=== PATIENT | male | born 1960 | race Caucasian/White ===

== ENCOUNTER → 2020-07-17 07:59 | Outpatient (CLI) | payer SELFPAY ==
--- NOTE | 2020-07-17 08:18 | EKG12_ITS ---
Test Reason : PREOP Blood Pressure : / mmHG Vent. Rate : 082 BPM Atrial Rate : 082 BPM P-R Int : 124 ms QRS Dur : 092 ms QT Int : 390 ms P-R-T Axes : 066 027 056 degrees QTc Int : 455 ms Normal sinus rhythm with sinus arrhythmia Normal ECG Confirmed by RADHA BERGER, LUIS ([id number]), editor in chief [address] ([id number]) on 07/20/2020 1:45:25 PM Referred By: Jazlyn Ortega Confirmed By:LUIS GARCIA MD
[2020-07-17 09:37] LABS: Hematocrit 42.6 % (40-54); Hemoglobin 15.2 g/dL (13.0-16.5); Mean Corp Hgb Conc 35.7 g/dL (32-36); Mean Corpuscular Hgb 33.6 pg (27.0-32.0); Mean Corpuscular Volume 94.2 fL (80-94); Mean Platelet Vol. 10.3 fl (6.2-12.0); Platelet Count 167 K/mm3 (150-450); RBC Distribution Width CV 11.9 % (11.6-14.6); RBC Distribution Width SD 41.2 fl (35.1-43.9); Red Blood Count 4.52 M/mm3 (4.6-6.2); White Blood Count 3.6 K/mm3 (4.4-11.0)
[2020-07-17 10:10] LABS: Anion Gap 7 (5-15); BUN 15 mg/dL (7-18); BUN/Creat Ratio 13.8 RATIO (10-20); Calcium,Total 8.8 mg/dL (8.5-10.1); Chloride 105 mmol/L (98-107); Creatinine, Serum 1.09 mg/dL (0.70-1.30); EST Glomerular Filtration Rate 74 mL/min (>60); Est Glom Filt Rate - Afr Amer 89 mL/min (>60); Glucose 86 mg/dL (74-106); Potassium 3.9 mmol/L (3.5-5.1); Sodium Level 138 mmol/L (136-145)
== END ==
PROVIDERS: Referring Provider Nurse Practitioner Adult Health; Visit Provider Nurse Practitioner Adult Health
DX: Z01.812 Encounter for preprocedural laboratory examination (principal); Z03.818 Encounter for observation for suspected exposure to other biological agents ruled out
CPT/HCPCS: 36415; 80048; 85027; 87635; 93005; C9803; U0005; U0003

== ENCOUNTER 2022-04-30 10:00 | Emergency (ER) | payer OTHER, SELFPAY ==
[2022-04-30 10:01] VITALS: BP 143/84; PULSE 78; RESP 16; TEMP 36.6; O2SAT 98; BMI 28.8
--- NOTE | 2022-04-30 10:06 | EKG12_ITS ---
Test Reason : CHEST PAIN Blood Pressure : / mmHG Vent. Rate : 088 BPM Atrial Rate : 088 BPM P-R Int : 126 ms QRS Dur : 092 ms QT Int : 384 ms P-R-T Axes : 061 -06 035 degrees QTc Int : 464 ms Normal sinus rhythm Normal ECG Confirmed by RADHA BERGER, LUIS ([id number]), medical transcription editor [address] ([id number]) on 05/02/2022 2:08:32 PM Referred By: BB Confirmed By:LUIS GARCIA MD
--- NOTE | 2022-04-30 10:06 | RAD_ITS ---
INDICATION: chest pain EXAMINATION/TECHNIQUE: X-RAY - XR Chest 1 View COMPARISON: None. FINDINGS: LINES/DEVICES: None. LUNGS: No consolidation, edema or effusion. No pneumothorax. MEDIASTINUM AND CARDIOVASCULAR STRUCTURES: Cardiac silhouette not enlarged. Central airways and mediastinal contour are unremarkable. BONES AND SOFT TISSUES: Unremarkable. RAD/Chest 1 View (Portable) IMPRESSION: No radiographic evidence of acute cardiopulmonary disease. Electronically Signed: Tomas Valdes MD, DEBBIE at 10:30 EDT ,
[2022-04-30 10:13] LABS: Absolute Lymphocyte Count 0.75 X10^3/uL (0.83-4.51); Absolute Neutrophil Count 1.4 X10^3/uL (2.0-7.7); Basophil# 0.02 X10^3/uL; Basophil% 0.7 % (0-1); Eosinophil# 0.06 X10^3/uL; Eosinophils% 2.1 % (0-5); Hematocrit 41.6 % (40-54); Hemoglobin 15.3 g/dL (13.0-16.5); Lymphocyte # 0.75 X10^3/ul (0.83-4.51); Lymphocyte % 26.6 % (19-41); Mean Corp Hgb Conc 36.8 g/dL (32-36); Mean Corpuscular Hgb 34.3 pg (27.0-32.0); Mean Corpuscular Volume 93.3 fL (80-94); Mean Platelet Vol. 9.6 fl (6.2-12.0); Monocyte# 0.55 X10^3/uL; Monocyte% 19.5 % (0-10); NRBC Flagged by Analyzer 0 % (0-5); Neutrophil # 1.43 X10^3/uL (2.7-7.7); Neutrophil % 50.7 % (47-70); POSITIVE MORPHOLOGY YES; Platelet Count 152 K/mm3 (150-450); RBC Distribution Width CV 12.1 % (11.6-14.6); RBC Distribution Width SD 42.1 fl (35.1-43.9); Red Blood Count 4.46 M/mm3 (4.6-6.2); White Blood Count 2.8 K/mm3 (4.4-11.0)
[2022-04-30 10:14] LABS: Differential Indicated SCAN CRITERIA MET
--- NOTE | 2022-04-30 10:18 | ED.VIS.CHEST ---
HPI History of Present Illness Chief Complaint: Chest Pain Detail of Chief Complaint: Lower sternal and epigastric pain. Informant: patient and spouse/S.O. Onset/Context/Timing Onset: Days Activity at onset: gradual Timing: Continuous Quality: Positive for Dull Current Severity: Mild Maximum Severity: Mild Worsened By: Movement of Torso; Not Worsened By Exertion, Movement of Arm, Eating, Palpation, Breathing or Coughing Relieved By: Nothing Associated Symptoms: Negative for Nausea, Vomiting, Diaphoresis, Dyspnea, Cough, Fever, Lightheadedness or Palpitations Narrative Narrative: 61-year-old male no seen past medical history. No history of DVT or PE. No cardiac history. Non-smoker. Complaining of a pressure to dull sensation in his lower chest epigastric region. Has been going on for a week. Worse since Monday. Worse when he bends over. Not associated with exertion. No dyspnea. No hemoptysis. Pain is not pleuritic. No recent travel, surgery or immobilization. No leg pain or swelling. He denies any history of reflux or cardiac disease. He has no trouble with exertion or walking. The discomfort does not radiate to his back, neck, jaw or arm. Prior Similar Symptoms: Yes Recent Illness/Hospitalization: No CVD Risk Factors: Negative for Hypertension, Diabetes, Hypercholesterolemia, Family History 1' </=55 or Smoking PE Risk Factors: Negative for Recent Immobilization, Prior DVT or PE, Cancer or OCP + Smoking + >/=35 TAD Risk Factors: Negative for Marfan's Syndrome PFSH PFS Medical History Hydrocele Home Medications NK 04/30/22 [History Last Taken Unknown] Allergy/AdvReac Type Severity Reaction Status Date / Time No Known Allergies Allergy Verified 04/30/22 10:09 Social History Smoking Status: Never smoker ROS ROS ED ROS Narrative Denies recent illness. Review of Systems ROS Unobtainable: Denies due to encephalopathy Constitutional Constitutional ED: Denies chills or fever(s) Eyes Eyes: Reports none ENT ENT ED: Denies ear pain Cardiovascular Cardiovascular: Reports as per HPI and chest pain Respiratory/Chest Respiratory/Chest: Denies cough or dyspnea Gastrointestinal Gastrointestinal: Reports abdominal pain and diarrhea; Denies constipation, melena, nausea or vomiting Genitourinary Genitourinary ED: Denies dysuria or hematuria Musculoskeletal Musculoskeletal: Denies arthralgias Integumentary Denies abscess Neurologic Neurologic: Denies headache(s) Psychiatric Psychiatric: Denies anxiety or depression Endocrine Endocrinology: Denies cold intolerance Hematologic/Lymphatic Hematologic/Lymphatic: Denies easy bleeding Allergic/Immunologic Allergic/Immunologic ED: Denies mouth swelling EXAM Physical Exam Narrative Exam Narrative: 61-year-old male vital signs are stable afebrile. Pulse ox is 90% on room air no signs of hypoxia. He is in no distress. at bedside. H EENT exam unremarkable. Neck nontender no lymphadenopathy. Trachea midline. Lungs clear to auscultation bilaterally. Heart regular rate and rhythm rate about 80. No murmur. Chest wall nontender. Abdomen soft nontender. Normal bowel sounds no peritoneal signs. Right upper and right lower quadrants are unremarkable. No distention. No pulsatile mass. Moving all 4 extremities. Calves are nontender without edema or cords. Normal motor strength. Equal symmetrical radial pulses. Back nontender. Neurologically is awake and alert with no focal motor deficits. Const Vital Signs: 04/30/22 10:01 04/30/22 10:04 04/30/22 10:06 Temperature 97.9 F Temperature Source Oral Pulse Rate 78 Respiratory Rate 16 Respiratory Effort Normal Blood Pressure 143/84 H Blood Pressure Mean 103 Pulse Ox 98 Oxygen Delivery Method Room Air Room Air Positive well nourished and well developed; Negative for obese, cachectic, contractures or unkempt General Appearance ED: well developed and NAD; Negative for unkempt, cachectic, contractures or pallor Nutritional Appearance: Negative for cachectic or obese HEENT Reports moist mucous membranes normocephalic and atraumatic; Negative for trauma or tenderness Eyes PERRL and EOMs intact bilaterally General Eye ED: Negative for pale conjunctiva or scleral icterus Neck no lymphadenopathy, supple and no JVD General: Negative for tenderness Chest Wall inspection of chest normal and palpation of chest normal Chest: Negative for tenderness Resp normal respiratory effort and clear to auscultation bilaterally Effort and Inspection: Negative for respiratory distress Auscultation: Negative for rales, rhonchi or wheezes Cardio regular rate, regular rhythm, S1 normal heart sound, S2 normal heart sound and no murmurs Rate: Negative for bradycardia or tachycardic Rhythm: Negative for abnormal rhythm Peripheral Pulses: pulses 2+ throughout GI normal to inspection, nondistended, normoactive bowel sounds, soft to palpation, non-tender, non-distended and no masses; Negative for hepatosplenomegaly Auscultation: Negative for hyperactive bowel sounds Palpation: Negative for splenomegaly Back/Spine no CVA tenderness and no thoracic nor lumbar tenderness General Back: Negative for CVA tenderness Cervical Spine: Negative for cervical spine tenderness Extremity normal to inspection General Extremety ED: Negative for edema or pulses abnormal General Extremity: Negative for edema or pulses abnormal Neuro oriented x3 and CN's II-XII intact bilaterally Sensorium / Orientation: awake, alert, oriented to person, oriented to place and oriented to time; Negative for confused, lethargic or stuporous Motor Exam: strength 5/5 throughout Psych mental status grossly normal Appearance: Negative for unkempt Attitude: No agitated Mood & Affect: Negative for depressed, anxious or tearful Skin no rashes or lesions noted and no wounds General Skin Exam: Negative for jaundice or pallor Rashes: No rashes noted Trauma: Negative for abrasion or laceration Heart Score History: Slightly/Non-Suspicious ECG: Normal Age: >45 - <65 years Risk Factors: No Risk Factors Troponin: </= Normal Limit Score: 1 MDM MDM MDM Narrative Medical decision making narrative: 61-year-old male with nonexertional epigastric discomfort. Not associate with shortness of breath. He has no risk factors for DVT or PE. Obviously we will do a cardiac work-up on him but clinically malignance is cardiac. It could be gastritis or reflux. Unlikely but possible pancreatitis or associated with gallbladder disease. But again I do not think it is either 1 of those. Chest x-ray labs will be obtained. Lipase and liver enzymes. We given a GI cocktail and Protonix. Other considerations would be like an aneurysm which clinically I do not think this is. Repeat exam at 11:30 AM patient is doing well. Feels better after GI cocktail and Protonix. Clinically I do not think this is cardiac. His labs, x-ray and EKG were unremarkable. He and his are comfortable being discharged home. He will be written for Protonix 40 mg a day for the next 2 weeks. Follow-up with his primary care provider. Return if worse. History & Record Review Discussion w/independent historian: Patient and Family Lab Data Attestation: I reviewed the patient's lab results. Lab results narrative: CBC shows a white count of 2.8. H&H of 15.3 and 41. Platelets 152. Chemistries are unremarkable. Gap at 2. Normal BUN and creatinine. Glucose 99. Troponin is 4. He has had the pain for over a week. I do not think he needs a 2-hour troponin. Liver enzymes are normal. Lipase is normal at 205. Labs: Laboratory Results - last 24 hr 04/30/22 04/30/22 04/30/22 10:02 10:02 10:02 WBC 2.8 L RBC 4.46 L Hgb 15.3 Hct 41.6 MCV 93.3 MCH 34.3 H MCHC 36.8 H RDW Std Deviation 42.1 RDW Coeff of Urszula 12.1 Plt Count 152 MPV 9.6 Immature Gran % (Auto) 0.400 Neut % (Auto) 50.7 Lymph % (Auto) 26.6 [place] % (Auto) 19.5 H Eos % (Auto) 2.1 Baso % (Auto) 0.7 Absolute Neuts (auto) 1.4 L Absolute Lymphs (auto) 0.75 L Nucleated RBC % 0 Atypical Lymphocytes 1+ Reactive Lymphocytes 1+ Sodium 137 Potassium 3.5 Chloride 108 H Carbon Dioxide 27.0 Anion Gap 2 L BUN 15 Creatinine 0.99 Estim Creat Clear Calc 76.77 Est GFR (MDRD) Af Amer 99 Est GFR (MDRD) Non-Af 82 BUN/Creatinine Ratio 15.2 Glucose 99 Calcium 8.6 Total Bilirubin 0.50 Direct Bilirubin 0.17 AST 34 ALT 44 Alkaline Phosphatase 56 Troponin I High Sens 4 Total Protein 7.0 Albumin 3.7 Globulin 3.3 Lipase 04/30/22 10:02 WBC RBC Hgb Hct MCV MCH MCHC RDW Std Deviation RDW Coeff of Urszula Plt Count MPV Immature Gran % (Auto) Neut % (Auto) Lymph % (Auto) [place] % (Auto) Eos % (Auto) Baso % (Auto) Absolute Neuts (auto) Absolute Lymphs (auto) Nucleated RBC % Atypical Lymphocytes Reactive Lymphocytes Sodium Potassium Chloride Carbon Dioxide Anion Gap BUN Creatinine Estim Creat Clear Calc Est GFR (MDRD) Af Amer Est GFR (MDRD) Non-Af BUN/Creatinine Ratio Glucose Calcium Total Bilirubin Direct Bilirubin AST ALT Alkaline Phosphatase Troponin I High Sens Total Protein Albumin Globulin Lipase 205 Radiography Chest X-Ray - ED: 1 View, Read by ED Physician, Normal, Heart, Lungs, Mediastinum and Bony Structures Diagnostic Testing: Clinical Impression(s) from Imaging Studies Chest X-Ray 04/30/22 10:06 IMPRESSION: No radiographic evidence of acute cardiopulmonary disease. Electronically Signed: Tomas Valdes MD, DEBBIE at 10:30 EDT , Chest ray x-ray, portable, single view interpreted by myself shows no acute abnormality. Normal cardiac silhouette mediastinum. Normal aorta. Normal lung villanueva. Rhythm Strip Rhythm Strip: Sinus Rhythm Rate: 88 Ectopy: None EKG Initial EKG: Attestation: I personally reviewed and interpreted this EKG as follows: Interpretation: Sinus Rhythm and No Acute Injury Pattern Comments: Normal sinus rhythm rate 88 no acute signs of [place] nor ischemia no dysrhythmia. Discharge Plan Triage Chief Complaint: Chest Pain ED Provider: Davy Will Dx/Rx/DC Orders Prescriptions: No Action NK Primary Care Provider: Isabel Carlisle Referrals: NOT,DEFINED [Non-Staff] -
[2022-04-30 10:32] LABS: Anion Gap 2 (5-15); BUN 15 mg/dL (7-18); BUN/Creat Ratio 15.2 RATIO (10-20); Calcium,Total 8.6 mg/dL (8.5-10.1); Chloride 108 mmol/L (98-107); Creatinine, Serum 0.99 mg/dL (0.70-1.30); EST Glomerular Filtration Rate 82 mL/min (>60); Est Glom Filt Rate - Afr Amer 99 mL/min (>60); Estimated Creatinine Clearance 76.77 ml/min; Glucose 99 mg/dL (74-106); Potassium 3.5 mmol/L (3.5-5.1); Sodium Level 137 mmol/L (136-145); Troponin-I HS (w/2H Reflex) 4 pg/mL (3.0-78.0)
[2022-04-30] MEDS: Pantoprazole Sodium 40 MG Tablet PO (10:38)
[2022-04-30] MEDS: Mag Hydrox/Al Hydrox/Simeth 30 ML UDC PO (10:38)
[2022-04-30 10:48] LABS: Lipase 205 U/L (73-393)
[2022-04-30 10:50] LABS: Atypical Lymphocyte 1+ %; Reactive Lymphocyte 1+
[2022-04-30 10:51] LABS: AST(SGOT) 34 U/L (15-37); Alanine Aminotransfer ALT/SGPT 44 U/L (16-61); Albumin, Serum 3.7 g/dL (3.2-5.0); Alkaline Phosphatase 56 U/L (45-117); Bilirubin, Direct 0.17 mg/dL (0.00-0.30); Globulin 3.3 g/dL (2.2-4.2)
[2022-04-30 11:51] VITALS: BP 138/78; PULSE 87; RESP 16; O2SAT 99
[2022-04-30 12:10] LABS: Reflex Troponin-HS? (from REC) Y
== END 2022-04-30 11:52 | disposition home or self-care (01) ==
PROVIDERS: Emergency Medicine; Emergency Provider Emergency Medicine; PCP Nurse Practitioner Family; Visit Provider Emergency Medicine
DX: R07.9 Chest pain, unspecified (principal); R10.13 Epigastric pain; R19.7 Diarrhea, unspecified
CPT/HCPCS: 71045; 80048; 80076; 83690; 84484; 85025; 93005; 99285